=== PATIENT | male | born 1950 ===

== ENCOUNTER → 2024-11-08 | Outpatient (CLI) | payer MEDICAID ==
[~2024-11-08] VITALS: Ht 177.8 cm; Wt 101.6 kg
[~2024-11-08] MED LIST: ADENOSINE 85 MG in GIVE UN-DILUTED 0 ML IV ONE; ADENOSINE 90 MG/30 ML INJ IV ONE
== END | disposition home or self-care (01) ==
LOC: Rad HDHVI 08:30
PROVIDERS: ATTEND Internal Medicine Cardiovascular Disease
DX: I49.1 Atrial premature depolarization (principal); R00.1 Bradycardia, unspecified; Z13.6 Encounter for screening for cardiovascular disorders; I10 Essential (primary) hypertension; I44.0 Atrioventricular block, first degree; E78.00 Pure hypercholesterolemia, unspecified; F17.210 Nicotine dependence, cigarettes, uncomplicated
CPT/HCPCS: 78452; 93017; A9500; J0153